=== PATIENT | female | born 1995 | race Two or more races ===

== ENCOUNTER 2020-07-29 20:05 | Emergency (ER) | payer OTHER ==
[~2020-07-29] VITALS: Ht 172.7 cm; Wt 60.8 kg
[~2020-07-29 20:05] MED LIST: PRENATAL TABLE1 EAC1 PO
== END 2020-07-29 22:22 | disposition home or self-care (01) ==
LOC: ER 20:05
DX: M62.830 Muscle spasm of back (principal)

== ENCOUNTER 2020-12-03 18:23 | Emergency (ER) | payer OTHER ==
[~2020-12-03] VITALS: Ht 172.7 cm; Wt 59.0 kg
[2020-12-03] MEDS ORDERED: TAMS0.4C PO (22:32)
== END 2020-12-03 22:37 | disposition home or self-care (01) ==
LOC: ER 18:23
DX: N39.0 Urinary tract infection, site not specified (principal)

== ENCOUNTER 2021-03-21 12:57 | Emergency (ER) | payer OTHER ==
[~2021-03-21] VITALS: Ht 172.7 cm; Wt 60.8 kg
[~2021-03-21 12:57] MED LIST changes: +TAMS0.4C PO
== END 2021-03-21 15:32 | disposition home or self-care (01) ==
LOC: ER 12:57
DX: T81.42XA Infection following a procedure, deep incisional surgical site, initial encounter (principal)

== ENCOUNTER 2022-12-11 13:49 | Emergency (ER) | payer OTHER ==
[~2022-12-11] VITALS: Ht 167.6 cm; Wt 61.2 kg
== END 2022-12-11 15:48 | disposition home or self-care (01) ==
LOC: ER 13:49
DX: Z77.098 Contact with and (suspected) exposure to other hazardous, chiefly nonmedicinal, chemicals (principal)

== ENCOUNTER 2024-08-26 08:34 | Emergency (ER) | payer OTHER ==
[~2024-08-26] VITALS: Ht 172.7 cm; Wt 68.9 kg
[2024-08-26] MEDS ORDERED: KETOROLAC TROMETHAMINE 60 MG VIAL IM STA (09:42)
[2024-08-26] MEDS ORDERED: ORPHENADRINE CITRATE 30 MG/ML AMPUL IM STA (09:42)
[2024-08-26] MEDS ORDERED: ORPHENADRINE CITRATE 30 MG/ML AMPUL ONE (09:47)
[2024-08-26] MEDS ORDERED: KETOROLAC TROMETHAMINE 60 MG VIAL IM ONE (09:47)
== END 2024-08-26 09:59 | disposition home or self-care (01) ==
LOC: ER 08:35
DX: M54.50 Low back pain, unspecified (principal)
CPT/HCPCS: 96372; 99282; J1885; J2360

== ENCOUNTER → 2024-12-25 | Emergency (ER) | payer OTHER ==
[~2024-12-25] VITALS: Ht 172.7 cm; Wt 70.3 kg
[~2024-12-25] MED LIST changes: +ACETAMINOPHEN500 M1 PO; +GILTUSS COUGH-118 M1 PO; +OSEL75CA PO; +OSELTAMIVIR PHOSPHATE 75 MG CAPSULE PO ONE
[2024-12-25 20:39] LABS: BASO % 0.3 % (0.1-1.2); EOS # 0.02 (0.04-0.54); EOS % 0.3 % (0.7-7.0); LYMPH # 0.62 (1.18-3.74); LYMPH % 9.0 % (19.3-53.1); MEAN PLATELET VOLUME 9.80 fl (9.4-12.4); MONO # 0.73 (0.24-0.82); MONO % 10.6 % (4.7-12.5); NEUT # 5.45 (1.56-6.13); NEUT % 79.4 % (34.0-71.1); RED CELL DISTRIBUTION WIDTH 13.2 % (11.6-14.4)
[2024-12-25 21:00] LABS: COVID-19 AG NEGATIVE (NEGATIVE)
== END | disposition home or self-care (01) ==
LOC: ER 18:45
PROVIDERS: Preventive Medicine Public Health & General Preventive Medicine
DX: J10.1 Influenza due to other identified influenza virus with other respiratory manifestations (principal)